=== PATIENT | female | born 1965 | race Two or more races ===

== ENCOUNTER → 2024-05-02 | Outpatient (CLI) | payer MEDICAID, SELFPAY ==
--- NOTE | 2024-05-02 14:30 | XR_ITS ---
Examination: CT chest, without intravenous contrast. Sagittal and coronal 2-D reconstructions. Exam date and time: May 02, 2024 1455 hours INDICATIONS: Severe back and shoulder pain several months CTDI:vol (mGy) 11.8 DLP: (mGycm) 391 Technique: Multiple 3.0 mm axial sections of the chest to been obtained. Bone and lung density settings are obtained. Sagittal and coronal 2-D reconstructions have been obtained. Low dose protocols were performed. One or more of the following dose reduction techniques were used; automated exposure control, adjustment of the mA and/or KV according to patient size, use of iterative reconstruction technique. Findings: Enlarged right thyroid lobe with multiple right thyroid nodules No thoracic aortic aneurysm dilatation Pulmonary artery segments are not enlarged No paratracheal tracheobronchial or bronchopulmonary adenopathy. 3 mm pulmonary nodule posterior left lung image 1:15 8mm pulmonary nodule right middle lobe image 195 No pneumonia or pulmonary edema No visualized liver or splenic lesion Contracted gallbladder No pancreatic mass IMPRESSION: Noncalcified pulmonary nodules as above, with this study as baseline recommend continued 6 month follow-up CT chest without contrast
== END | disposition home or self-care (01) ==
PROVIDERS: PCP Physician Assistant; Referring Provider Physician Assistant; Visit Provider Physician Assistant
DX: R91.8 Other nonspecific abnormal finding of lung field (principal)
CPT/HCPCS: 71250

== ENCOUNTER → 2024-06-06 | Outpatient (BNVA) | payer MEDICAID, SELFPAY | END | disposition home or self-care (01) | PROVIDERS: PCP Nurse Practitioner Family; Referring Provider Nurse Practitioner Family; Visit Provider Urology | DX: M54.6 Pain in thoracic spine (principal); Z87.440 Personal history of urinary (tract) infections; E11.9 Type 2 diabetes mellitus without complications; E66.9 Obesity, unspecified; Z68.27 Body mass index [BMI] 27.0-27.9, adult | CPT/HCPCS: 81003; 99211; G0463 ==

== ENCOUNTER 2024-06-13 16:30 | Outpatient (RCR) | payer MEDICAID, SELFPAY ==
--- NOTE | 2024-05-30 15:17 | PTNOTE_ITS ---
PT OP Initial Eval Patient Information Outpatient Physical Therapy Treatment Date: 05/30/24 Visit Reasons: low back pain Medical Diagnosis: M54.5 Treatment Dx #1: LBP with radiculopathy Start of Care: 05/30/24 Date of Onset: 6 months ago Smoking Status Smoking Status: Never smoker Initial Assessment Subjective: Pt is 58 yr old french speaking female who c/o LBP on the R side that runs down B LE's x6 months. Decreased standing about 10 mins and HH chore tolerance to about 5 minutes. PMH: DM, HTN Imaging: Xrays in EMR of L/S Mild disc during posteriorly L5-S1 Pt goal; to get rid of the pain to walk further Objective: Trunk ArOM: ? B SB 50% of normal with pain ? Extension: 20% with pain around L4-5, L5-S1 ? Flexion: 15 from floor with LBP ? B rotation: 60% with pain ? R SLR ROM: 45 deg. ? TTP: moderate paraspinals L2-5 ? Neuro: R SLR: positive Assessment: ?Pt presents with trunk flexion sensitivity and overlying myofascial pain ? and TTP consistent with lower lumbar disc bulge(s) with radiculopathy. Pt requires skilled therapy in order to decrease ? pain and improve sitting/standing tolerance and has fair rehab potential. Eval ?followed by HEP printout. 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 Ind with HEP ? 2. Improved sitting/standing tolerance to 30 minutes with <=4/10 LBP ? 3. Decreased lower paraspinal TTP from mod to min 4. Improved HH chore tolerance to at least 20 minutes with <=3/10 LBP and no ?increase in LE ssx ? Treatment Plan ? 1. Manual therapy ? 2. Therex ? 3. Modalities as indicated, moist heat, ice, estim, mechanical traction Frequency and Duration: 2x a week for 12 visits plus the evaluation Certification Dates: 05/30/24 to 08/28/24 Procedure Charges OP PT Eval Mod Complex 30 minutes: Yes
--- NOTE | 2024-06-13 18:42 | PT.ODAYNRPT ---
PT Outpatient Daily Note OP Daily Note Outpatient Physical Therapy Treatment Date: 06/13/24 Visit Reasons: low back pain Subjective: Doing HEP with continued LBP Objective: See F/S for therex MT: STM L/S x5' Mechanical traction x7' L/S Assessment: Moderate TTP of lumbar paraspinals with MT Plan: Continue per POC Length of Time (minutes) of Treatment: 30 Minutes Procedure Charges Therapeutic Exercise 30 minutes: Yes
== END 2024-06-15 23:59 | disposition home or self-care (01) ==
LOC: CPTX 16:30
PROVIDERS: PCP Physician Assistant; Referring Provider Physician Assistant; Visit Provider Physician Assistant
DX: M54.16 Radiculopathy, lumbar region (principal); I10 Essential (primary) hypertension; E11.9 Type 2 diabetes mellitus without complications
CPT/HCPCS: 97110; 97162

== ENCOUNTER 2024-07-04 16:00 | Outpatient (RCR) | payer MEDICAID, SELFPAY ==
--- NOTE | 2024-06-17 15:52 | PT.ODAYNRPT ---
PT Outpatient Daily Note OP Daily Note Outpatient Physical Therapy Treatment Date: 06/17/24 Visit Reasons: Low back pain Subjective: Pt reports continued LBP, pain down the legs and pain on both feet. As per pt she received another rx to have PT done on her foot. Objective: Please see flow sheet for ther ex list. Assessment: Pt instructed on repeated lumbar extension, encouraged to perform for HEP. Plan: Continue with pOC. Length of Time (minutes) of Treatment: 30 Minutes Procedure Charges Therapeutic Exercise 30 minutes: Yes
--- NOTE | 2024-06-20 17:28 | PT.ODAYNRPT ---
PT Outpatient Daily Note OP Daily Note Outpatient Physical Therapy Treatment Date: 06/20/24 Visit Reasons: Low back pain Subjective: Doing HEP with continued LBP Objective: See F/S for therex MT: STM L/S x5' Assessment: Moderate TTP of lumbar paraspinals with MT. Poor memory of HEP Plan: Continue per POC Length of Time (minutes) of Treatment: 30 Minutes Procedure Charges Therapeutic Exercise 30 minutes: Yes
--- NOTE | 2024-06-27 16:53 | PT.ODAYNRPT ---
PT Outpatient Daily Note OP Daily Note Outpatient Physical Therapy Treatment Date: 06/27/24 Visit Reasons: Low back pain Subjective: Doing HEP with continued LBP Objective: See F/S for therex MHP x7' L/S Assessment: Moderate TTP of lumbar paraspinals with MT. Low pain in L/S with prone extension. Plan: Continue per POC Length of Time (minutes) of Treatment: 30 Minutes Procedure Charges Therapeutic Exercise 30 minutes: Yes
--- NOTE | 2024-07-04 17:46 | PT.ODAYNRPT ---
PT Outpatient Daily Note OP Daily Note Outpatient Physical Therapy Treatment Date: 07/04/24 Visit Reasons: Low back pain Subjective: Doing HEP with continued LBP Objective: See F/S for therex MHP x7' L/S Assessment: Moderate TTP of R sided lumbar paraspinals with MT. Low pain in L/S with prone extension. Plan: Continue per POC Length of Time (minutes) of Treatment: 30 Minutes Procedure Charges Therapeutic Exercise 30 minutes: Yes
== END 2024-07-16 23:59 | disposition home or self-care (01) ==
LOC: CPTX 16:00
PROVIDERS: PCP Physician Assistant; Referring Provider Physician Assistant; Visit Provider Physician Assistant
DX: M54.16 Radiculopathy, lumbar region (principal)
CPT/HCPCS: 97110

== ENCOUNTER → 2024-07-14 | Outpatient (CLI) | payer MEDICAID, SELFPAY ==
--- NOTE | 2024-07-14 16:30 | XR_ITS ---
Examination: MRI left ankle, without contrast Date and time of exam: July 14, 2024 1725 hours Left ankle pain beginning October 2023 Technique: Multiple axial sagittal and coronal images of the left ankle have been obtained with the Siemens high-resolution 1.5 [employer] MRI scanner. Images obtained include T2-weighted fat-suppressed sagittal sections, TR 3500, TE 46, T2 weighted coronal fat suppressed images, TR 3050, TE 84, T2-weighted transverse fat suppressed images, TR 3260, TE 63, proton density transverse images, TR 4720 TE 46, and T1 weighted coronal images, TR 560, TE 13. Findings: Biconvex thickening of the Achilles tendon Marked plantar fasciitis with thickening of the plantar fascia at the calcaneal insertion and surrounding edema No occult ankle fracture Negative for sinus Tarsi syndrome Anterior posterior inferior tibiofibular ligaments are intact Mild strain anterior talar fibular ligament Tendinitis posterior tibial flexor digitorum and flexor hallucis longus tendons Intact extensor tendons No avascular necrosis Attenuated calcaneofibular ligament IMPRESSION: Achilles tendinosis Prominent plantar fasciitis Mild strain anterior talar fibular ligament Tendinitis posterior tibial, flexor digitorum and flexor hallucis longus tendons Attenuated calcaneofibular ligament
== END | disposition home or self-care (01) ==
LOC: SMRI 17:05
PROVIDERS: PCP Physician Assistant; Referring Provider Otolaryngology; Visit Provider Otolaryngology
DX: M76.822 Posterior tibial tendinitis, left leg (principal); M72.2 Plantar fascial fibromatosis; M24.272 Disorder of ligament, left ankle
CPT/HCPCS: 73721

== ENCOUNTER 2024-07-19 15:24 | Outpatient (RCR) | payer MEDICAID, SELFPAY ==
--- NOTE | 2024-07-19 18:21 | PT.ODS1RPT ---
PT OP Progress/Discharge Note Date of Service: 07/19/24 Progress Note/DC Note Progress Note/Discharge Note: DC Note Patient Information Visit Reasons: Low Back pain Service Continue Service or Discharge: Discharge Discharge Date: 07/19/24 Status Subjective: The back pain is about the same as before therapy, temporary relief after therapy visits. Objective: Trunk AROM: FB: 15 from floor with pain Extension: 20% TTP: moderate of lumbar paraspinals B rotation: 60% with pain Assessment: Pt has attended 6/6 Rx sessions per MD order with limited progress with therapy goals due to continued LBP. Pt hasn't met HH chore tolerance goal and lower paraspinals are still moderately tender. Pt will no longer benefit from physical therapy due to minimal progression with goals. Pt may benefit from further diagnostic imaging of L/S such as MRI. Plan: D/C with HEP Procedure Charges Therapeutic Exercise 30 minutes: Yes
== END 2024-08-15 23:59 | disposition home or self-care (01) ==
LOC: CPTX 15:24
PROVIDERS: PCP Physician Assistant; Referring Provider Physician Assistant; Visit Provider Physician Assistant
DX: M54.16 Radiculopathy, lumbar region (principal); E11.9 Type 2 diabetes mellitus without complications; I10 Essential (primary) hypertension
CPT/HCPCS: 97110